=== PATIENT | female | born 1985 | race Caucasian/White ===

== ENCOUNTER 2016-11-16 18:48 | Emergency (ER) | payer OTHER ==
[~2016-11-16] VITALS: Ht 170.2 cm; Wt 75.0 kg
[2016-11-16 18:59] VITALS: BP 137/79; PULSE 85; RESP 16; TEMP 98.8; O2SAT 99
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
[2016-11-16] MEDS ORDERED: PROPARACAINE HCL 0.5% OPHT SOLN 15 ML BTL LEFT EYE ONE (20:00)
[2016-11-16 20:01] LABS: BACTERIA, URINE MANY /hpf; BLOOD, URINE NEG (NEG); COMMENT (UR) CULTURE INDICATED; CULTURE IF INDICATED CULTURE INDICATED; GLUCOSE,URINE NEG (NEG); KETONE, URINE NEG (NEG); PH, URINE 6.5 (5.0-8.5); SQUAMOUS EPITHELIAL CELL URINE <1 /hpf (0-5); URINE COLOR YELLOW (YELLW/STRAW)
[2016-11-16 20:02] LABS: NITRITE,URINE POS (NEG)
[2016-11-16 20:03] LABS: AUTOMATED NEUTROPHIL # 5.4 TH/MM3 (1.8-7.7); BASOPHIL % 0.5 % (0.0-2.0); EOSINOPHIL % 0.2 % (0.0-4.0); HEMATOCRIT 39.6 % (35.0-46.0); HEMO FLAGS DIFF FINAL; LYMPH % 18.2 % (9.0-44.0); LYMPHOCYTE # 1.4 TH/MM3 (1.0-4.8); MEAN CELL VOLUME 84.3 FL (80.0-100.0); MEAN CORPUSCULAR HEMOGLOBIN 28.2 PG (27.0-34.0); MEAN CORPUSCULAR HGB CONC 33.4 % (32.0-36.0); MONO % 11.8 % (0.0-8.0); NEUT % 69.3 % (16.0-70.0); PLATELET COUNT 291 TH/MM3 (150-450); RED CELL DISTRIBUTION WIDTH 13.1 % (11.6-17.2); WHITE BLOOD COUNT 7.8 TH/MM3 (4.0-11.0)
[2016-11-16 20:04] LABS: AMPHETAMINE, URINE NEG (NEG); BARBITURATES, URINE NEG (NEG); COCAINE, URINE POS (NEG)
[2016-11-16 20:25] LABS: ANION GAP 7 MEQ/L (5-15); AST (GOT) 17 U/L (15-37); BICARBONATE 29.2 MEQ/L (21.0-32.0); BLOOD UREA NITROGEN 11 MG/DL (7-18); CHLORIDE 106 MEQ/L (98-107); GLOMERULAR FILTRATION RATE 60 ML/MIN (>89); POTASSIUM 3.6 MEQ/L (3.5-5.1); SODIUM (NA) 142 MEQ/L (136-145)
[2016-11-16 20:28] LABS: ALKALINE PHOSPHATASE 90 U/L (45-117); ALT (GPT) 22 U/L (10-53); TOTAL BILIRUBIN ADULT 0.2 MG/DL (0.2-1.0)
[2016-11-16] MEDS: CEPHALEXIN MONOHYDRATE 500 MG CAP PO SCH (21:09)
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
[2016-11-16] MEDS ORDERED: ONDANSETRON ODT 4 MG TAB PO ONE (21:45)
[2016-11-16 23:26] VITALS: BP 134/77; PULSE 60; RESP 16; TEMP 99.8; O2SAT 99
[2016-11-17] MEDS ORDERED: PROCHLORPERAZINE INJ 10 MG/2 ML VIAL IM ONE (00:45)
[2016-11-17 03:43] VITALS: BP 127/62; PULSE 58; RESP 16; O2SAT 98
[2016-11-17] MEDS: CEPHALEXIN MONOHYDRATE 500 MG CAP PO SCH ×2 (06:00→14:00)
[2016-11-17 07:37] VITALS: BP 136/82; PULSE 67; RESP 14; O2SAT 99
[2016-11-17] MEDS ORDERED: ONDANSETRON ODT 4 MG TAB PO ONE (07:45)
[2016-11-17 11:59] VITALS: BP 131/76; PULSE 50; RESP 22; O2SAT 99
[2016-11-17 15:55] VITALS: BP 122/59; PULSE 53; RESP 18; O2SAT 100
[2016-11-17] MEDS ORDERED: BACT800T5 PO (16:46)
[2016-11-17 16:48] VITALS: TEMP 99.4
== END 2016-11-17 18:57 ==
LOC: NEPD 18:48 → NEPB 11-17 18:57
DX: H57.12 Ocular pain, left eye (principal); R45.851 Suicidal ideations; F19.20 Other psychoactive substance dependence, uncomplicated; F32.9 Major depressive disorder, single episode, unspecified; Z72.0 Tobacco use; Y04.2XXA Assault by strike against or bumped into by another person, initial encounter; Y93.9 Activity, unspecified; Y92.9 Unspecified place or not applicable; Y99.9 Unspecified external cause status
CPT/HCPCS: 70486; 80053; 80307; 81001; 84703; 85025; 87077; 87086; 87186; 96372; 99284; J0780